=== PATIENT | male | born 1935 | race Caucasian/White ===

== ENCOUNTER 2017-08-27 08:34 | Day surgery (SDC) | payer OTHER ==
[~2017-08-27] VITALS: Ht 188 cm; Wt 95.6 kg
[~2017-08-27 08:34] MED LIST: AMBI10TA PO; ASPI81 PO; CEPH500C3 PO; CORE6.25 PO; FURO1TAB93 PO; KLOR20TA6 PO; LEVO100T4 PO; LORTA10 PO; PRAV40TA PO; PRIN10TA PO
[2017-08-27] MEDS ORDERED: CARV6.252 PO (09:08)
[2017-08-27] MEDS ORDERED: VITA1000 PO (09:08)
[2017-08-27] MEDS ORDERED: ATOR40TA16 PO (09:08)
[2017-08-27] MEDS ORDERED: KLOR20TA3 PO (09:08)
[2017-08-27] MEDS ORDERED: LEVO100T5 PO (09:08)
[2017-08-27] MEDS ORDERED: TEMA15CA PO (09:08)
[2017-08-27] MEDS ORDERED: FURO40TA PO (09:08)
[2017-08-27] MEDS ORDERED: XARE20TA PO (09:08)
[2017-08-27] MEDS ORDERED: LISI10TA3 PO (09:08)
[2017-08-27 09:10] VITALS: BP 182/95; PULSE 64; RESP 18; TEMP 97.6; O2SAT 99
[2017-08-27 09:19] LABS: AUTOMATED NEUTROPHIL # 3.6 TH/MM3 (1.8-7.7); BASOPHIL % 0.6 % (0.0-2.0); EOSINOPHIL # 0.1 TH/MM3 (0-0.4); EOSINOPHIL % 1.5 % (0.0-4.0); HEMATOCRIT 41.8 % (39.0-51.0); HEMO FLAGS DIFF FINAL; LYMPH % 28.5 % (9.0-44.0); LYMPHOCYTE # 1.8 TH/MM3 (1.0-4.8); MEAN CELL VOLUME 95.8 FL (80.0-100.0); MEAN CORPUSCULAR HEMOGLOBIN 32.6 PG (27.0-34.0); MEAN CORPUSCULAR HGB CONC 34.1 % (32.0-36.0); NEUT % 57.4 % (16.0-70.0); PLATELET COUNT 181 TH/MM3 (150-450); RED BLOOD COUNT 4.36 MIL/MM3 (4.50-5.90); RED CELL DISTRIBUTION WIDTH 13.5 % (11.6-17.2); WHITE BLOOD COUNT 6.2 TH/MM3 (4.0-11.0)
[2017-08-27 09:34] LABS: APTT (PATIENT) 27.5 SEC (24.3-30.1); BICARBONATE 27.5 MEQ/L (21.0-32.0); INTERNATIONAL NORMALIZED RATIO 1.1 RATIO; POTASSIUM 3.6 MEQ/L (3.5-5.1); PROTHROMBIN TIME - PATIENT 10.8 SEC (9.8-11.6)
[2017-08-27] MEDS ORDERED: SODIUM CHLORID 0.9% 500 ML IV PRN (10:00)
[2017-08-27] MEDS ORDERED: METOPROLOL TARTRATE 25 MG TAB PO PRN (10:00)
[2017-08-27] MEDS ORDERED: VANCOMYCIN 1000 MG/NS 250 ML IV SCH ×2 (10:00)
[2017-08-27] MEDS ORDERED: CHLORHEXIDINE GLUCONATE 2 % 1 PACK (2 CLOTHS) TOPICAL SCH (10:00)
[2017-08-27] MEDS ORDERED: POVIDONE IODINE 5% (ANTISEPSIS KIT) 4 APPLICATIONS EACH NARE PRN (10:00)
[2017-08-27] MEDS ORDERED: LORazepam 1 MG TAB SL SCH (10:00)
[2017-08-27] MEDS ORDERED: POVIDONE IODINE 5% (ANTISEPSIS KIT) 4 APPLICATIONS EACH NARE SCH (10:00)
[2017-08-27] MEDS ORDERED: MUPIROCIN 2% OINT 1 APPLIC/GM SYR NASAL SCH (10:00)
[2017-08-27] MEDS ORDERED: LACTATED RINGER'S 1000 ML IV PRN (10:00)
[2017-08-27] MEDS ORDERED: NS 1000 ML IV SCH (10:00)
[2017-08-27] MEDS ORDERED: CHLORHEXIDINE GLUCONATE 2 % 1 PACK (2 CLOTHS) TOPICAL PRN (10:00)
[2017-08-27] MEDS ORDERED: ceFAZolin 2 GM PREMIX 50 ML IV SCH ×2 (10:00→19:00)
[2017-08-27] MEDS ORDERED: DO NOT ADM ANY ANTICOAGULANT DRUGS PRN (11:45)
[2017-08-27] MEDS ORDERED: SODIUM CHLORIDE 0.9% FLUSH 10 ML FLUSH IV FLUSH PRN (12:00)
[2017-08-27] MEDS ORDERED: ONDANSETRON HCL 4 MG/2 ML VIAL IV PUSH PRN (12:00)
[2017-08-27] MEDS ORDERED: CEPH-460 PO (12:02)
[2017-08-27] MEDS ORDERED: HYDR-3288 PO (12:02)
--- NOTE | 2017-08-27 12:13 | CATHPROC ---
[employer] HIS Report Study Information Study Number Admission Scheduled Start Study Start [id number] Aug 27 2017 8:34AM 08/27/2017 Aug 27 2017 9:34AM [place] [facility] Cardiac Pacer/ICD Admit Source Facility Department Other [facility] - [facility] Physician and Clinical Staff Initial Bre Suárez Weld Engineer Raquel Guadarrama RN Weld Engineer Julee Rahman,RT(R) TECH2 Other Anesthesia, CASHIER GAMBLING Recorder Polly Nguyne,SILVIARN Scrub Shiva Gracia,RT(R) Equipment Time Embroidery Worker Description Size Mfg Part Number Used/Scraped 11:47 BIOTRONIK DEFIBRILLATOR, ITREVIA 7 HF-T VVE-[id number] Used DERMABOND, ADHESIVE SKIN [id number] 09:36 CORDIS/PACER * Used GLUE MINI *[id number] 09:36 MEDLINE INDUSTRIES SUTURE, STRIP PLUS 1/2" * Used *[id number] 09:36 MEDLINE PACER ECHEVARRIA, LIMB * 2530 *[id number] Used [id number] 09:36 MEDLINE PACER PACK, PACER CUSTOM * Used *[id number] 11:22 Needle Sponge Count 2 2 Used 11:51 Needle Sponge Count 2 22 Used 11:53 Needle Sponge Count 2 2 Used 11:22 Needle Sponge Count 2 22 Used 11:53 Needle Sponge Count 2 22 Used 11:53 Needle Sponge Count 20 200 Used 11:22 Needle Sponge Count 20 200 Used 11:51 Needle Sponge Count 20 200 Used SUTURE, 2-0 VICRYL [CT1] ([id number]) [id number] 09:36 [place] [facility],WARM AIR CCL * Used *[id number] [facility] PAD, ELECTROSURGICAL 09:36 * [id number] *[id number] Used SURGICAL GROUNDING ORANGE 11:13 VITATRON MEDTRONIC PLASMABLADE, PEAD 3.0S * [id number] Used Equipment Model, Serial, Lot Number and Expiration Data Description Model Number Serial Number Lot Number Expiration Date DEFIBRILLATOR, ITREVIA 7 HF-T [id number] 06-16-2018 History: Allergies Allergy Reaction morphine Nausea/Vomiting No Known Allergies History: Risk Factors Hypertension Dyslipidemia Previous Heart Failure Yes Yes Yes Labs Hgb (g/dl) Hct (%) RBC (MIL/MM3) WBC (l/cumm) Platelets (thousands) 11.60-17.00 35.00-51.00 4.00-5.90 4.00-11.00 150.00-450.00 14.2 41.8 4.3 6.2 181 Glucose (mg/dl) BUN (mg/dl) Creatinine (mg/dl) BUN:Creatinine (1:x) 74.00-106.00 7.00-18.00 0.50-1.30 10.00-20.00 83 25 1.5 16.7 Na (meq/l) K (meq/l) Cl (meq/l) CO2 (mmol/L) Ca (mg/dl) 136.00-145.00 3.50-5.10 98.00-107.00 21.00-32.00 8.50-10.10 141 3.6 106 27.5 9 INR (PTT:PT) 0.90-1.10 1.1 Medication Medication Total Dose (Bolus/Oral) Medication Total Dosage/Unit 2% XYLOCAINE 50 mL Medications (Bolus/Oral) Medication Time Given Dosage/Unit Administered By Reason 08/27/2017 11:42:00 2% XYLOCAINE 50 mL Bre Arellano AM 50 mL 2% XYLOCAINE given in lab by Bre Arellano in Left upper chest via Subcutaneous. Medication (Drip) Medication Time Given Dosage/Unit Concentration/Unit Diluent (ml) Solution 08/27/2017 11:10:00 ANCEF 2 g AM 2 g ANCEF given in lab by Anesthesia, CASHIER GAMBLING in Right Forearm via Peripheral IV. Ordered by Mil Arellano. Reason: As per physicians verbal order. 08/27/2017 11:07:52 IV Solutions 0 mL (IV) NaCl .9 AM IV Solutions given in lab by Anesthesia, CASHIER GAMBLING in Left Forearm via Peripheral IV. Pump/Drip Flow = 50 ml/hr using NaCl .9. Ordered by Bre Arellano. Reason: As per physicians verbal order. 08/27/2017 11:08:18 IV Solutions 0 mL (IV) NaCl .9 AM IV Solutions given in lab by Anesthesia, CASHIER GAMBLING in Left Forearm via Peripheral IV. Pump/Drip Flow = 50 ml/hr using NaCl .9. Ordered by Bre Arellano. Reason: As per physicians verbal order. 08/27/2017 11:10:10 VANCOMYCIN DRIP 1 g AM 1 g VANCOMYCIN DRIP given in lab by Anesthesia, CASHIER GAMBLING in Right Forearm via Peripheral IV. Ordered by Bre Guaman. Reason: As per physicians verbal order. Initial Case Assessment Cardiovascular HR NIBP Chest Pain 59 178/87 0 Edema Present Skin color Skin None Normal Warm Dry Neurological State Oriented to time-place- Alert Moves all extremities person Respiration - General Respiration Rate SpO2 (%) (B/min) 20 100 Final Case Assessment Cardiovascular HR NIBP Chest Pain 61 109/61 0 Edema Present Skin color Skin None Normal Warm Dry Neurological State Oriented to time-place- Alert Moves all extremities person Respiration - General Respiration Rate SpO2 (%) (B/min) 20 99 Chronological Log Time Study Chronological Log 10:58:25 Patient arrived via Bed. 10:59:04 Patient Name, D.O.B, / Armband Verified By R.N. 10:59:05 Consent signed by the physician and the patient and verified by the Manager Of It staff. 10:59:07 Pre-op and post- op instructions given; patient acknowledges understanding of instructions. 10:59:09 Verbal Stimulation=2 Physical Stimulation=2 Airway=2 Respiration=2 TOTAL=10. (0=absent, 1=l imited, 2=present) 10:59:27 Presedation assessment performed by Manager Of It RN. 10:59:30 Patient has been NPO for More than 6Hrs. 10:59:32 Skin Breakdown- none 10:59:39 Patient Warmer Placed on the Table. 10:59:42 Disposable Defibrillator Pads Placed On Patient. 10:59:47 Selam Prominences Protected 11:00:00 Anesthesia at bedside. Assumes care of patient. Gabriele CASHIER GAMBLING 11:07:26 A # 20 IV was noted in the Forearm (left). Grade = 0 0.9ns kvo 11:07:45 A # 20 IV was noted in the Forearm (right). Grade = 0 0.9ns kvo IV Solutions given in lab by Anesthesia, CASHIER GAMBLING in Left Forearm via Peripheral IV. Pump/Drip Flow = 50 ml/hr using NaCl 11:07:52 .9. Ordered by Bre Arellano. Reason: As per physicians verbal order. IV Solutions given in lab by Anesthesia, CASHIER GAMBLING in Left Forearm via Peripheral IV. Pump/Drip Flow = 50 ml/hr using NaCl 11:08:18 .9. Ordered by Bre Arellano. Reason: As per physicians verbal order. 11:08:36 History and physical on the chart or being dictated. Assessment: Initial Case, HR=59 BPM, MTQJ=867/87 mmhg, Chest Pain=0, Edema=None, Color=Normal, Skin = Warm, Dry 11:08:38 Neurological: State=Alert, Ox3, RILEY Respiration: Resp=20 B/min, XjG4=761 % 11:09:00 Table restraints applied according to hospital policy 11::09 Bovie ground pad applied to: right thigh 11:09:17 2% CHLORHEXIDINE GLUCONATE WASH AND NASAL SWIPE DONE PRIOR TO PROCEDURE. 2 g ANCEF given in lab by Anesthesia, CASHIER GAMBLING in Right Forearm via Peripheral IV. Ordered by Bre Arellano. Reason: As 11:10:00 per physicians verbal order. 1 g VANCOMYCIN DRIP given in lab by Anesthesia, CASHIER GAMBLING in Right Forearm via Peripheral IV. Ordere d by Bre Arellano. 11:10:10 Reason: As per physicians verbal order. 11:19:02 Left Upper Chest Prepped Times Two. 11:20:25 Reference ECG taken First Sponge And Instrument Count Done by Shiva Gracia, RT(R). 11:21:30 Hypo's: 2, Sponges: 20, Bovie/scratch: 2 Sutures: 2, Blades: 1, Instruments: 26, Syveck Patches: 0 verified w mm 11:32:10 MD paged 11:39:07 MD arrived. Time Out. Correct patient, procedure, procedure equipment, site and side verified with physicia n present. Time 11:41:00 concurred by MD, individual staff and CASHIER GAMBLING. Time Out #2 - Consents verified, patient in correct position, all results are labled and displa yed, safety precautions 11:41:32 taken, antibiotics administered. Time out concurred by MD, individual staff and CASHIER GAMBLING in procedu re 11:41:50 Case Start 11:42:00 50 mL 2% XYLOCAINE given in lab by Bre Arellano in Left upper chest via Subcutaneous. 11:43:08 Surgical Incision Made. 11:43:33 A pocket was created at the L Upper Chest. 11:44:00 A device was explanted. 11:47:30 A DEFIBRILLATOR, ITREVIA 7 HF-T VVE-DDDRV was connected and placed in the pocket. Second Sponge And Instrument Count Done by Julee Rahman, RT(R) TECH2. 11:50:48 Hypo's: 2, Sponges: 20, Bovie/scratch: 2 Sutures: ~SUTURE~, Blades: 1, Instruments: ~INSTRU~, Syveck Patches: ~SYVECK PATCH~ one sutute added 11:51:26 Implant Procedure was performed. BIV ICD Generator Change 11:51:53 A Bivent ICD Implant . (Dual) generator change 11:52:13 Bedside Report will be given. 11:52:45 The pocket was closed. The Final Sponge And Instrument Count Done by Julee Rahman, RT(R) TECH2. 12:06:00 Hypo's: 2, Sponges: 20, Bovie/scratch: 2 Sutures: 3, Blades: 1, Instruments: 26, Syveck Patches: 0 one suture added Assessment: Final Case, HR=61 BPM, HVXD=947/61 mmhg, Chest Pain=0, Edema=None, Color=Normal, S kin = Warm, Dry 12:07:00 Neurological: State=Alert, Ox3, RILEY Respiration: Resp=20 B/min, SpO2=99 % 12:08:00 Steri-strips and a sterile dressing applied to site. 12:11:37 Case End 12:12:14 Cine recording checked. 12:12:19 Holding Area notified of successful intervention. 12:12:47 Implantable Device card placed in patient's chart. 12:12:49 Defibrillator and ground pads removed. Skin intact. 12:25:00 Patient moved to stretcher and transported to [facility] in stable condition. End Study - Contrast Media Used In Study Contrast Total Opened (mL) Total Used (mL) Total Wasted (mL) Unspecified 0 0 0 End Study - Maximum Contrast Load Max Contrast Load (mL) 318.6 End Study - Radiation Exposure Fluoro Time (minutes) 0.1 End Study - Patient Disposition Complications Transferred To Interventional Outcome No Telemetry Bed successful
--- NOTE | 2017-08-27 12:37 | MP ---
cc: GUSTAVO VALDERRAMA M.D. DATE OF SURGERY 08/27/2017 PROCEDURE PERFORMED Biventricular pacer/defibrillator removal, biventricular pacer/ defibrillator replacement. INDICATIONS Mr. Thapa is an 82-year-old gentleman with congestive heart failure, cardiomyopathy, previous biventricular pacer/defibrillator implanted, generator end of life who will undergo generator replacement. The risks, the nature and the benefit of the procedure are clearly stated to him. The risks include pneumothorax, cardiac perforation, stroke and even . The patient understand and agreed to proceed. PROCEDURE After written informed consent was obtained, the patient was brought to the EP lab where he was prepped and draped in the usual sterile fashion. Conscious sedation was initiated and maintained throughout the procedure by anesthesiologist. Once sedation verified, the left infraclavicular area over the existing generator was anesthetized with 2% Xylocaine. Using a #11 scalpel, a 2-cm incision was made over the existing generator. Dissection was then taken down through the deep fascial layer using Bovie cautery and blunt dissection. Once exposed, the generator was removed from the pocket. Scar tissue was removed around the lead. Pocket revision was performed. Then the lead was disconnected from the generator and tested. After adequate pacing and sensing thresholds were obtained, the lead was disconnected from the old generator and connected to the new generator placed into the pocket. I then proceeded with wound closure. The deep fascial layer was reapproximated with 2-0 Vicryl suture in a continuous fashion. The subcutaneous layer was approximated using 2-0 Vicryl suture in a continuous fashion. The subcuticular layer was approximated using with 2-0 Vicryl suture in a continuous fashion. Dermabond adhesive was applied to the wound followed by sterile pressure dressing. There were no complications. The patient tolerated the procedure and blood loss was minimal. 1. Explanted hardware: The explanted defibrillator generator is a [employer] serial number [id number]. That was implanted in February 2012. 2. Implanted hardware: The implanted biventricular pacer defibrillator is a [employer] model number [id number], serial number [id number]. 3. Threshold: The right atrial pacing threshold in the bipolar mode was 1.1 volt at 0.4 milliseconds. Lead impedance 123 ohms P-wave at 5.4 mV. The right ventricle pacing threshold in the bipolar mode was 0.94 at 0.4 milliseconds. Lead impedance 535 ohms, R-wave at 322.6 mV. The left ventricular pacing threshold in the bipolar mode was 1.5 volts at 1 milliseconds. Lead impedance 705 ohms. 4. Settings: The device set in a DDD 60, upper rate limit 120 per minute. LV first by 40 milliseconds, AV delay paced at 140 and sensed at 120. The defibrillatory portion for two zone one zone for ventricular tachycardia between 160-240 beats per minute. Initial therapy consists of one burst of ATP, one ramp, 81% 10-pause, 70-second mental followed by 20, then 30 and all subsequent shocks at 40 joule defibrillatory shock. Second zone for ventricular fibrillation above 240 beats per minute first therapy at 30 and all subsequent shocks at 40 joule defibrillatory shock. CONCLUSION Successful biventricular pacer defibrillator removal, biventricular pacer/defibrillator replacement. COMMENT AND RECOMMENDATIONS The patient is going to be observed. He can be discharged home when stable. MD JENNIFER Garcia/TONY /12:03 PM /12:23 PM
[2017-08-27] MEDS ORDERED: SODIUM CHLORIDE 0.9% FLUSH 10 ML FLUSH IV FLUSH SCH (21:00)
--- NOTE | 2017-08-28 14:18 | EKG ---
Date Performed: 08/27/2017 Time Performed: 09:31:50 PTAGE: 82 years EK% AV SEQUENTIAL PACING Pacemaker rhythm - no further analysis Abnormal ECG PREVIOUS TRACING : 03/09/2012 05.02 DOCTOR: Redd Holland Interpretating Date/Time 08/28/2017 14:16:46
== END 2017-08-27 15:41 | disposition home or self-care (01) ==
LOC: HCAT 08:34 → HDIC 08:35 → HCAT 15:41
PROVIDERS: ATTEND Internal Medicine Interventional Cardiology
DX: Z45.02 Encounter for adjustment and management of automatic implantable cardiac defibrillator (principal); I11.0 Hypertensive heart disease with heart failure; I50.9 Heart failure, unspecified; I42.0 Dilated cardiomyopathy; R00.2 Palpitations; I48.91 Unspecified atrial fibrillation
CPT/HCPCS: 00530; 33264; 80048; 85025; 85610; 85730; 86850; 86900; 86901; 93005; C1882; J0690; J3370; J7050